=== PATIENT | male | born 1950 | race Caucasian/White ===

== ENCOUNTER → 2019-10-23 13:32 | Outpatient (CLI) | payer SELFPAY ==
[2019-10-23 14:14] LABS: Influenza A - CEPHEID Flu A NEGATIVE (NEGATIVE); Influenza B - CEPHEID Flu B NEGATIVE (NEGATIVE)
== END ==
PROVIDERS: Visit Provider Physician Assistant
DX: R52 Pain, unspecified (principal)
CPT/HCPCS: 87502

== ENCOUNTER 2019-10-23 14:32 | Emergency (ER) | payer SELFPAY ==
[2019-10-23] VITALS (20 sets, daily range): BP systolic 135–177; BP diastolic 96–124; PULSE 79–90; RESP 17–25; TEMP 36.9; O2SAT 89–93
--- NOTE | 2019-10-23 14:41 | DI.RAD.S_ITS ---
PROCEDURE: XR CHEST 2V INDICATIONS: soa TECHNIQUE: 2 views of the chest were acquired. COMPARISON: None. FINDINGS: Surgical changes and devices: None. Lungs and pleura: Lungs are clear. No pleural effusions or pneumothorax. Mediastinum: Mediastinal contours are normal. Heart size is mildly enlarged. Bones and chest wall: No suspicious bony abnormalities. Soft tissues appear unremarkable. IMPRESSION: Mild cardiomegaly. No acute pulmonary findings. Dictated by: Joselin Prasad M.D. on 10/23/2019 at 13:56 Approved by: Joselin Prasad M.D. on 10/23/2019 at 13:57
[2019-10-23 15:12] LABS: Add Manual Diff / Slide Review NO; Basophils Absolute Auto 100 /uL (0-100); Basophils Percent Auto 0.9 % (0-2); Eosinophils Absolute Auto 100 /uL (0-450); Eosinophils Percent Auto 1.1 % (2-4); Hematocrit 49.1 % (41-53); Hemoglobin 16.5 g/dL (13.5-17.5); Lymphocytes Absolute Auto 1300 /uL (1100-4500); Mean Corpuscular HGB Conc 33.6 % (30-36); Mean Corpuscular Hemoglobin 28.1 PG (26-34); Mean Corpuscular Volume 83.8 fL (80-100); Monocytes Absolute Auto 800 /uL (0-900); Monocytes Percent Auto 11.6 % (3-14); Neutrophils Absolute Auto 4900 /uL (1500-7000); Neutrophils Percent Auto 68.4 % (50-75); Platelet Count 184 X10^3/uL (150-400); Red Blood Cell Count 5.85 X10^6/uL (4.5-5.9); Red Cell Distribution Width 14.9 % (11.6-14.8); White Blood Cell Count 7.1 X10^3/uL (4.5-11.0)
--- NOTE | 2019-10-23 15:19 | DI.CT.S_ITS ---
PROCEDURE: CT ANGIO CHEST PE PROTOCOL INDICATIONS: sob, hypoxia TECHNIQUE: After the administration of intravenous contrast, 2 mm thick sections acquired from the pulmonary apices to the posterior costophrenic angles. 3-dimensional maximum intensity projection (MIP) coronal and sagittal reformats were then acquired through the thorax. For radiation dose reduction, the following was used: automated exposure control, adjustment of mA and/or kV according to patient size. COMPARISON: None. FINDINGS: Image quality: Excellent. Pulmonary arteries: Extensive bilateral pulmonary emboli including a large pulmonary embolus is in the right main pulmonary artery extending into the right middle lobe pulmonary artery and right lower lobe pulmonary artery, with nonocclusive thrombus extending into the lateral basal segment pulmonary artery the right lower lobe. There is a so large embolus in the distal left main pulmonary artery extending into the left upper lobe pulmonary artery and left lower lobe pulmonary artery with clot extending into the lingular pulmonary artery and small clot in multiple basilar branch pulmonary arteries. Lungs and pleura: 3 mm pulmonary nodule, right lower lobe, image 150/5. Minimal atelectasis versus consolidation in the left lower lobe. Minimal left pleural effusion. Central and peripheral airways are patent. Mediastinum: The right ventricle may be slightly greater in size than the left ventricle. This is not definite, based on how the heart is oriented relative to the axial plane. There is no reflux of contrast into the inferior vena cava.. No mediastinal or hilar adenopathy. Thoracic aorta is normal in caliber and enhancement. Esophagus is normal in caliber, without hiatal hernia. Bones and chest wall: No suspicious bony lesions. Ribs and thoracic spine appear intact throughout. Thyroid gland is unremarkable4. No axillary or supraclavicular adenopathy. Abdomen: There is a question of focal calcifications versus early filling of a peripherally enhancing lesion in the liver on images 118 through 125. The area measures approximately 2 cm in diameter. IMPRESSION: 1. Extensive central and peripheral pulmonary emboli. 2. Question increased RV/LV ratio. This is not definite. 3. 3 mm right lower lobe pulmonary nodule. 4. Minimal atelectasis versus consolidation in the left lower lobe. 5. A 2 cm lesion in the liver should be further characterized by ultrasound or multiphase CT or MRI at a later date. Comment: Findings were discussed with Dr. Velarde at the time of study dictation on 10/23/19 at 1615 hrs. Dictated by: Nahun Baptiste M.D. on 10/23/2019 at 16:15 Approved by: Nahun Baptiste M.D. on 10/23/2019 at 16:24
[2019-10-23 15:37] LABS: Alanine Aminotransferase 15 IU/L (<50); Albumin 4.1 g/dL (3.5-5.0); Albumin Globulin Ratio 1.3 (1.0-2.8); Alkaline Phosphatase 80 U/L (38-126); Aspartate Aminotransferase 29 IU/L (17-59); BUN Creatinine Ratio 15.4 (6-22); Bilirubin Total 1.1 mg/dL (0.2-1.3); Blood Urea Nitrogen 20 mg/dL (9-20); Carbon Dioxide 29 mmol/L (22-32); Chloride 104 mmol/L (98-107); Creatine Kinase 99 U/L (55-170); Estimated Glomerular Filt Rate 55.1 mL/min (>60); Globulin 3.1 g/dL (1.7-4.1); Glucose 101 mg/dL (80-110); HEMOLYSIS < 15 (0-50); Potassium 4.3 mmol/L (3.4-5.1); Sodium 140 mmol/L (137-145); Total Protein 7.2 g/dL (6.3-8.2)
[2019-10-23 15:38] LABS: Lactate (Lactic Acid) 0.9 mmol/L (0.7-2.1); Magnesium 2.3 mg/dL (1.6-2.3)
[2019-10-23 15:48] LABS: Troponin I 0.052 ng/mL (0.01-0.034)
[2019-10-23 16:02] LABS: B Type Natriuretic Peptide 197 (<100)
[2019-10-23 16:29] LABS: INR 1.1 (0.9-1.3); Prothrombin Time 12.9 SECONDS (10.1-12.7)
[2019-10-23] MEDS: HEPARIN 5,000 UNIT/ML VIAL 6700 UNIT IV (16:29)
[2019-10-23] MEDS: HEPARIN DRIP 25,000 UNIT/500 ML IV.SOLN 24 UNIT IV (16:30)
[2019-10-23 16:32] LABS: PTT Partial Thromboplastin Tim 29 SECONDS (26.4-36.2)
--- NOTE | 2019-10-23 19:30 | ED_ITS ---
HPI - SOB/Dyspnea <SWAPNA Rosado - Last Filed: 10/23/19 21:46> General Chief Complaint: Shortness of Breath/Dyspnea Stated Complaint: shortness of breath Time Seen by Provider: 10/23/19 14:54 Source: patient Mode of arrival: Ambulatory Limitations: no limitations History of Present Illness HPI Narrative: The patient is a 69-year-old male who denies pertinent medical history who presents with a chief complaint of shortness of breath that is progressive over the past few days. He states it started 2-3 days ago, when he had sudden pain in his left calf. Since he has had a hard time walking up hills in ambulating. He denies any medical history, surgeries or daily medications. He states that he has not had any recent immobilization, long travel or surgeries. He denies any chest pain, states he just has shortness of breath. he denies any palpitations, dizziness, lightheadedness or weakness. He states he is very frustrated as he used to do triathlons and did one recently. Related Data Home Medications Medication Instructions Recorded Confirmed No Known Home Medications 10/23/19 10/23/19 Allergies Allergy/AdvReac Type Severity Reaction Status Date / Time No Known Drug Allergies Allergy Verified 10/23/19 13:30 Review of Systems <SWAPNA Rosado - Last Filed: 10/23/19 21:46> Review of Systems Narrative: GENERAL: Denies chills, fatigue, malaise, fever, sweats. HEENT: Denies sinus pain, ear pain, sore throat, difficulty swallowing, di zziness. RESPIRATORY: See HPI CARDIOVASCULAR: Denies chest pain, palpitations, orthopnea, edema, GASTROINTESTINAL: Denies nausea, vomiting, abdominal pain, diarrhea, constipation, melena. : Denies dysuria, frequency, incontinence, hematuria, urinary retention. MUSCULOSKELETAL: denies weakness, joint pain, or bony pain SKIN: Denies rash, skin lesions, or other NEUROLOGIC: Denies weakness, headache, numbness, change in speech, confusion, seizures, incoordination. PSYCHIATRIC: No concerning psychosocial issues. 12 point review of systems is negative except for those stated above Exam <SWAPNA Rosado - Last Filed: 10/23/19 21:46> Narrative Exam Narrative: GENERAL: This is a well-nourished, well-developed patient, in no acute distress HEAD: Atraumatic. Normocephalic. No temporal or scalp tenderness. EYES: Pupils equal round and reactive. Extraocular motions intact. No scleral icterus. No injection or drainage. ENT: Nose without bleeding, purulent drainage or septal hematoma. Throat without erythema, tonsillar hypertrophy or exudate. Uvula midline. Airway patent. NECK: Trachea midline. No JVD or lymphadenopathy. Supple, nontender, no meningeal signs. CARDIOVASCULAR: Regular rate and rhythm RESPIRATORY: Clear to auscultation. Breath sounds equal bilaterally. No wheezes, rales, or rhonchi. No cough. Slightly tachypneic. No accessory muscle use. GASTROINTESTINAL: Abdomen soft, non-tender, nondistended. No hepato- splenomegaly, or palpable masses. No guarding. EXTREMITIES: Positive pedal pulses bilaterally. Left calf slightly swollen compared to right. BACK: Nontender without deformity or crepitance. No flank tenderness. NEURO: AOx3. SKIN: No rash or erythema on visible skin Initial Vital Signs Initial Vital Signs: Vital Signs Temperature 98.4 F 10/23/19 14:39 Pulse Rate 85 10/23/19 14:39 Respiratory Rate 20 10/23/19 14:39 Blood Pressure 152/104 H 10/23/19 14:39 Pulse Oximetry 91 10/23/19 14:39 <Harsha Leavitt DO - Last Filed: 10/23/19 23:34> Initial Vital Signs Initial Vital Signs: Vital Signs Temperature 98.4 F 10/23/19 14:39 Pulse Rate 85 10/23/19 14:39 Respiratory Rate 20 10/23/19 14:39 Blood Pressure 152/104 H 10/23/19 14:39 Pulse Oximetry 91 10/23/19 14:39 Course <SONAM Rosado-BC - Last Filed: 10/23/19 21:46> Orders Ordered: ED Orders 10/23/19 14:41 XR chest 2V Stat EKG-12 Lead Stat 10/23/19 15:05 B Type Natriuretic Peptide Stat Complete Blood Count AUTO DIFF Stat Comprehensive Metabolic Panel Stat Lactate (Lactic Acid) Stat Magnesium Stat Partial Thromboplastin Time Stat Prothrombin Time INR Stat Troponin & CK Cardiac Panel Stat 10/23/19 15:19 CT angio chest PE protocol Stat 10/23/19 19:04 B Type Natriuretic Peptide Stat Trop I [Troponin I] Stat 10/23/19 22:30 Partial Thromboplastin Time Stat Prothrombin Time INR Stat Discontinued Medications Heparin Sodium (Porcine) (Heparin) 6,700 unit 80 unit/kg (6700 unit) IV NOW ONE Stop: 10/23/19 16:22 Last Admin: 10/23/19 16:29 Dose: 6,700 unit Documented by: DEANNA Heparin Sodium/Dextrose (Heparin Drip) 25,000 unit in 500 mls @ 24 mls/hr IV CONT SHARON; Protocol Last Admin: 10/23/19 16:30 Dose: 1,200 units/hr, 24 mls/hr Documented by: DEANNA Consultations Consultation #1: I spoke with Dr. Agosto and Dr Morfin from [facility], who states that the patient would be eligible for tPA in the morning. However this would place him in the ICU in the morning with aged or disabled carer Dr. Agosto, but he would not be in the ICU overnight. Dr Morfin, hospitalist states that the patient would not be able to be transferred until the morning. Called back with worsening vitals and hypoxia, concern of right heart strain. However patient is unable to be accepted until the morning at [facility]. [facility] Time: 18:30 Consultation #2: Spoke with Hernandez YADAV, not hospitalist who states the patient would ideally be transferred somewhere else for a more appropriate level of care. Time: 19:30 Consultation #3: Spoke with Dr. Haddad cardiac aged or disabled carer at [facility] as well as Dr. Felton, hospitalist who states that the patient is appropriate for transfer to [facility]. Patient was stood and ambulated as per intensive is recommendations. Without syncope or near-syncope. Dr. Felton accepts patient for transfer. Time: 21:00 Vital Signs Vital signs: Vital Signs - 8 hr 10/23/19 15:48 10/23/19 16:30 10/23/19 17:00 Pulse Rate 84 85 84 Respiratory Rate 24 23 22 Blood Pressure [Left Arm] 141/100 H 149/105 H 166/113 H Pulse Oximetry 93 92 89 L 10/23/19 17:15 10/23/19 17:30 10/23/19 17:45 Pulse Rate 85 85 86 Respiratory Rate 22 22 21 Blood Pressure [Left Arm] 145/104 H 146/102 H 156/97 H Pulse Oximetry 91 93 92 10/23/19 18:00 10/23/19 18:15 10/23/19 18:45 Pulse Rate 89 90 85 Respiratory Rate 24 25 H 17 Blood Pressure [Left Arm] 147/103 H 157/107 H 159/114 H Pulse Oximetry 92 92 93 10/23/19 19:15 10/23/19 19:45 10/23/19 20:00 Pulse Rate 86 87 84 Respiratory Rate 23 23 21 Blood Pressure [Left Arm] 148/105 H 160/124 H 156/105 H Pulse Oximetry 92 93 91 10/23/19 20:15 10/23/19 20:30 10/23/19 20:45 Pulse Rate 87 89 89 Respiratory Rate 19 19 19 Blood Pressure [Left Arm] 155/109 H 177/102 H 177/102 H Pulse Oximetry 92 92 92 10/23/19 21:04 10/23/19 22:33 Pulse Rate 88 88 Respiratory Rate 17 23 Blood Pressure [Left Arm] 135/96 H 156/106 H Pulse Oximetry 93 92 <Harsha Leavitt, DO - Last Filed: 10/23/19 23:34> Orders Ordered: ED Orders 10/23/19 14:41 XR chest 2V Stat EKG-12 Lead Stat 10/23/19 15:05 B Type Natriuretic Peptide Stat Complete Blood Count AUTO DIFF Stat Comprehensive Metabolic Panel Stat Lactate (Lactic Acid) Stat Magnesium Stat Partial Thromboplastin Time Stat Prothrombin Time INR Stat Troponin & CK Cardiac Panel Stat 10/23/19 15:19 CT angio chest PE protocol Stat 10/23/19 19:04 B Type Natriuretic Peptide Stat Trop I [Troponin I] Stat 10/23/19 22:30 Partial Thromboplastin Time Stat Prothrombin Time INR Stat Discontinued Medications Heparin Sodium (Porcine) (Heparin) 6,700 unit 80 unit/kg (6700 unit) IV NOW ONE Stop: 10/23/19 16:22 Last Admin: 10/23/19 16:29 Dose: 6,700 unit Documented by: DEANNA Heparin Sodium/Dextrose (Heparin Drip) 25,000 unit in 500 mls @ 24 mls/hr IV CONT SHARON; Protocol Last Admin: 10/23/19 16:30 Dose: 1,200 units/hr, 24 mls/hr Documented by: DEANNA Vital Signs Vital signs: Vital Signs - 8 hr 10/23/19 15:48 10/23/19 16:30 10/23/19 17:00 Pulse Rate 84 85 84 Respiratory Rate 24 23 22 Blood Pressure [Left Arm] 141/100 H 149/105 H 166/113 H Pulse Oximetry 93 92 89 L 10/23/19 17:15 10/23/19 17:30 10/23/19 17:45 Pulse Rate 85 85 86 Respiratory Rate 22 22 21 Blood Pressure [Left Arm] 145/104 H 146/102 H 156/97 H Pulse Oximetry 91 93 92 10/23/19 18:00 10/23/19 18:15 10/23/19 18:45 Pulse Rate 89 90 85 Respiratory Rate 24 25 H 17 Blood Pressure [Left Arm] 147/103 H 157/107 H 159/114 H Pulse Oximetry 92 92 93 10/23/19 19:15 10/23/19 19:45 10/23/19 20:00 Pulse Rate 86 87 84 Respiratory Rate 23 23 21 Blood Pressure [Left Arm] 148/105 H 160/124 H 156/105 H Pulse Oximetry 92 93 91 10/23/19 20:15 10/23/19 20:30 10/23/19 20:45 Pulse Rate 87 89 89 Respiratory Rate 19 19 19 Blood Pressure [Left Arm] 155/109 H 177/102 H 177/102 H Pulse Oximetry 92 92 92 10/23/19 21:04 10/23/19 22:33 Pulse Rate 88 88 Respiratory Rate 17 23 Blood Pressure [Left Arm] 135/96 H 156/106 H Pulse Oximetry 93 92 MDM - SOB/Dyspnea <SONAM Rosado-BC - Last Filed: 10/23/19 21:46> Lab Data Result diagrams: 10/23/19 15:05 10/23/19 15:05 Labs: Lab Results 10/23/19 10/23/19 10/23/19 Range/Units 15:05 15:05 15:05 WBC 7.1 (4.5-11.0) X10^3/uL RBC 5.85 (4.5-5.9) X10^6/uL Hgb 16.5 (13.5-17.5) g/dL Hct 49.1 (41-53) % MCV 83.8 (80-100) fL MCH 28.1 (26-34) PG MCHC 33.6 (30-36) % RDW 14.9 H (11.6-14.8) % Plt Count 184 (150-400) X10^3/uL Neut % (Auto) 68.4 (50-75) % Lymph % (Auto) 18.0 L (25-40) % Howell % (Auto) 11.6 (3-14) % Eos % (Auto) 1.1 L (2-4) % Baso % (Auto) 0.9 (0-2) % Neut # (Auto) 4900 (9644-0217) /uL Lymph # (Auto) 1300 (0009-6466) /uL Howell # (Auto) 800 (0-900) /uL Eos # (Auto) 100 (0-450) /uL Baso # (Auto) 100 (0-100) /uL PT (10.1-12.7) SECONDS INR (0.9-1.3) APTT (26.4-36.2) SECONDS Sodium 140 (137-145) mmol/L Potassium 4.3 (3.4-5.1) mmol/L Chloride 104 (98-107) mmol/L Carbon Dioxide 29 (22-32) mmol/L BUN 20 (9-20) mg/dL Creatinine 1.30 H (0.66-1.25) mg/dL Estimated GFR 55.1 L (>60) mL/min BUN/Creatinine Ratio 15.4 (6-22) Glucose 101 (80-110) mg/dL Lactate (0.7-2.1) mmol/L Calcium 9.0 (8.4-10.2) mg/dL Magnesium 2.3 (1.6-2.3) mg/dL Total Bilirubin 1.1 (0.2-1.3) mg/dL AST 29 (17-59) IU/L ALT 15 (<50) IU/L Alkaline Phosphatase 80 (38-126) U/L Total Creatine Kinase 99 (55-170) U/L CK-MB (CK-2) TNP CK-MB (CK-2) Rel Index TNP Troponin I 0.052 H (0.01-0.034) ng/mL B-Natriuretic Peptide 197 H (<100) Total Protein 7.2 (6.3-8.2) g/dL Albumin 4.1 (3.5-5.0) g/dL Globulin 3.1 (1.7-4.1) g/dL Albumin/Globulin Ratio 1.3 (1.0-2.8) 10/23/19 10/23/19 10/23/19 Range/Units 15:05 15:05 19:04 WBC (4.5-11.0) X10^3/uL RBC (4.5-5.9) X10^6/uL Hgb (13.5-17.5) g/dL Hct (41-53) % MCV (80-100) fL MCH (26-34) PG MCHC (30-36) % RDW (11.6-14.8) % Plt Count (150-400) X10^3/uL Neut % (Auto) (50-75) % Lymph % (Auto) (25-40) % Howell % (Auto) (3-14) % Eos % (Auto) (2-4) % Baso % (Auto) (0-2) % Neut # (Auto) (4210-0430) /uL Lymph # (Auto) (4608-7642) /uL Howell # (Auto) (0-900) /uL Eos # (Auto) (0-450) /uL Baso # (Auto) (0-100) /uL PT 12.9 H (10.1-12.7) SECONDS INR 1.1 (0.9-1.3) APTT 29 (26.4-36.2) SECONDS Sodium (137-145) mmol/L Potassium (3.4-5.1) mmol/L Chloride (98-107) mmol/L Carbon Dioxide (22-32) mmol/L BUN (9-20) mg/dL Creatinine (0.66-1.25) mg/dL Estimated GFR (>60) mL/min BUN/Creatinine Ratio (6-22) Glucose (80-110) mg/dL Lactate 0.9 (0.7-2.1) mmol/L Calcium (8.4-10.2) mg/dL Magnesium (1.6-2.3) mg/dL Total Bilirubin (0.2-1.3) mg/dL AST (17-59) IU/L ALT (<50) IU/L Alkaline Phosphatase (38-126) U/L Total Creatine Kinase (55-170) U/L CK-MB (CK-2) CK-MB (CK-2) Rel Index Troponin I 0.051 H (0.01-0.034) ng/mL B-Natriuretic Peptide (<100) Total Protein (6.3-8.2) g/dL Albumin (3.5-5.0) g/dL Globulin (1.7-4.1) g/dL Albumin/Globulin Ratio (1.0-2.8) 10/23/19 10/23/19 Range/Units 19:04 22:30 WBC (4.5-11.0) X10^3/uL RBC (4.5-5.9) X10^6/uL Hgb (13.5-17.5) g/dL Hct (41-53) % MCV (80-100) fL MCH (26-34) PG MCHC (30-36) % RDW (11.6-14.8) % Plt Count (150-400) X10^3/uL Neut % (Auto) (50-75) % Lymph % (Auto) (25-40) % Howell % (Auto) (3-14) % Eos % (Auto) (2-4) % Baso % (Auto) (0-2) % Neut # (Auto) (7567-9728) /uL Lymph # (Auto) (3227-8556) /uL Howell # (Auto) (0-900) /uL Eos # (Auto) (0-450) /uL Baso # (Auto) (0-100) /uL PT 12.9 H (10.1-12.7) SECONDS INR 1.1 (0.9-1.3) APTT 57 H D (26.4-36.2) SECONDS Sodium (137-145) mmol/L Potassium (3.4-5.1) mmol/L Chloride (98-107) mmol/L Carbon Dioxide (22-32) mmol/L BUN (9-20) mg/dL Creatinine (0.66-1.25) mg/dL Estimated GFR (>60) mL/min BUN/Creatinine Ratio (6-22) Glucose (80-110) mg/dL Lactate (0.7-2.1) mmol/L Calcium (8.4-10.2) mg/dL Magnesium (1.6-2.3) mg/dL Total Bilirubin (0.2-1.3) mg/dL AST (17-59) IU/L ALT (<50) IU/L Alkaline Phosphatase (38-126) U/L Total Creatine Kinase (55-170) U/L CK-MB (CK-2) CK-MB (CK-2) Rel Index Troponin I (0.01-0.034) ng/mL B-Natriuretic Peptide 221 H (<100) Total Protein (6.3-8.2) g/dL Albumin (3.5-5.0) g/dL Globulin (1.7-4.1) g/dL Albumin/Globulin Ratio (1.0-2.8) Urine Dip Bedside Urine Glucose Negative Bedside Urine Bilirubin - Negative Bedside Urine Ketone +/- 5 Urine Specific [place] 1.015 Bedside Urine Occult Blood - Negative Bedside Urine pH 5.5 Bedside Urine Protein +/- 15 Bedside Urine Urobilinogen +/- 1mg Bedside Urine Nitrite - Negative Bedside Urine Leukocytes - Negative Esterase Imaging Data Chest x-ray: Radiologist's impression: [address] [address] XRay Report Signed Patient: Ricardo López LMR#: [id number] : 2Acct:[id number] Age/Sex: 69 / MDate of Service: 10/23/19 Loc: ED Accession Number: [id number] Procedure: XR chest 2V Ordering Provider: Jorge Velarde D.O. PROCEDURE: XR CHEST 2V INDICATIONS: soa TECHNIQUE: 2 views of the chest were acquired. COMPARISON: None. FINDINGS: Surgical changes and devices: None. Lungs and pleura: Lungs are clear. No pleural effusions or pneumothorax. Mediastinum: Mediastinal contours are normal. Heart size is mildly enlarged. Bones and chest wall: No suspicious bony abnormalities. Soft tissues appear unremarkable. IMPRESSION: Mild cardiomegaly. No acute pulmonary findings. Dictated by: Joselin Prasad M.D. on 10/23/2019 at 13:56 Approved by: Joselin Prasad M.D. on 10/23/2019 at 13:57 Chest CTA: Radiologist's impression: [address] [address] [address] Scan Report Signed Patient: Ricardo López LMR#: [id number] : 2Acct:[id number] Age/Sex: 69 / MDate of Service: 10/23/19 Loc: ED Accession Number: [id number] Procedure: CT angio chest PE protocol Ordering Provider: Merari Brown [facility] PROCEDURE: CT ANGIO CHEST PE PROTOCOL INDICATIONS: sob, hypoxia TECHNIQUE: After the administration of intravenous contrast, 2 mm thick sections acquired from the pulmonary apices to the posterior costophrenic angles. 3-dimensional maximum intensity projection (MIP) coronal and sagittal reformats were then acquired through the thorax. For radiation dose reduction, the following was used: automated exposure control, adjustment of mA and/or kV according to patient size. COMPARISON: None. FINDINGS: Image quality: Excellent. Pulmonary arteries: Extensive bilateral pulmonary emboli including a large pulmonary embolus is in the right main pulmonary artery extending into the right middle lobe pulmonary artery and right lower lobe pulmonary artery, with nonocclusive thrombus extending into the lateral basal segment pulmonary artery the right lower lobe. There is a so large embolus in the distal left main pulmonary artery extending into the left upper lobe pulmonary artery and left lower lobe pulmonary artery with clot extending into the lingular pulmonary artery and small clot in multiple basilar branch pulmonary arteries. Lungs and pleura: 3 mm pulmonary nodule, right lower lobe, image 150/5. Minimal atelectasis versus consolidation in the left lower lobe. Minimal left pleural effusion. Central and peripheral airways are patent. Mediastinum: The right ventricle may be slightly greater in size than the left ventricle. This is not definite, based on how the heart is oriented relative to the axial plane. There is no reflux of contrast into the inferior vena cava.. No mediastinal or hilar adenopathy. Thoracic aorta is normal in caliber and enhancement. Esophagus is normal in caliber, without hiatal hernia. Bones and chest wall: No suspicious bony lesions. Ribs and thoracic spine appear intact throughout. Thyroid gland is unremarkable4. No axillary or supraclavicular adenopathy. Abdomen: There is a question of focal calcifications versus early filling of a peripherally enhancing lesion in the liver on images 118 through 125. The area measures approximately 2 cm in diameter. IMPRESSION: 1. Extensive central and peripheral pulmonary emboli. 2. Question increased RV/LV ratio. This is not definite. 3. 3 mm right lower lobe pulmonary nodule. 4. Minimal atelectasis versus consolidation in the left lower lobe. 5. A 2 cm lesion in the liver should be further characterized by ultrasound or multiphase CT or MRI at a later date. Comment: Findings were discussed with Dr. Velarde at the time of study dictation on 10/23/19 at 1615 hrs. Dictated by: aNhun Baptiste M.D. on 10/23/2019 at 16:15 Approved by: Nahun Baptiste M.D. on 10/23/2019 at 16:24 ECG Data Attestation: I personally reviewed and interpreted this ECG as follows: Interpretation: SR, ventricular rate 84. P.r. 202, QRS 106m anterolateral ischemia viewed by Dr velarde MDM Narrative Medical decision making narrative: The patient is a 69-year-old male who presents with a chief complaint of increasing shortness of breath. He was found to be hypoxic on room air, had recent complaint of calf tenderness few days ago. Patient was evaluated for PE, was found to have extensive central and peripheral pulmonary emboli. He has signs of right heart strain, with elevated BNP and troponin in addition EKG changes. Patient had increasing oxygen requirements throughout his stay in the emergency department. He was placed on heparin with bolus and drip as per Dr. Velarde recommendations. I spoke with several hospitals in order to try to 5 appropriate placement for this patient. [facility] is full, [facility] is full, [facility] does not have any availability into the morning. Patient was accepted for transfer to [facility] by Dr. Felton at approximately 21:00 hours. Patient states understanding of transfer, has no que stions or concerns. He has 2 IVs, heparin infusing and was signed out to Dr. Leavitt at 21:30 <Harsha Leavitt, DO - Last Filed: 10/23/19 23:34> Lab Data Labs: Lab Results 10/23/19 10/23/19 10/23/19 Range/Units 15:05 15:05 15:05 WBC 7.1 (4.5-11.0) X10^3/uL RBC 5.85 (4.5-5.9) X10^6/uL Hgb 16.5 (13.5-17.5) g/dL Hct 49.1 (41-53) % MCV 83.8 (80-100) fL MCH 28.1 (26-34) PG MCHC 33.6 (30-36) % RDW 14.9 H (11.6-14.8) % Plt Count 184 (150-400) X10^3/uL Neut % (Auto) 68.4 (50-75) % Lymph % (Auto) 18.0 L (25-40) % Howell % (Auto) 11.6 (3-14) % Eos % (Auto) 1.1 L (2-4) % Baso % (Auto) 0.9 (0-2) % Neut # (Auto) 4900 (4506-3562) /uL Lymph # (Auto) 1300 (0206-3742) /uL Howell # (Auto) 800 (0-900) /uL Eos # (Auto) 100 (0-450) /uL Baso # (Auto) 100 (0-100) /uL PT (10.1-12.7) SECONDS INR (0.9-1.3) APTT (26.4-36.2) SECONDS Sodium 140 (137-145) mmol/L Potassium 4.3 (3.4-5.1) mmol/L Chloride 104 (98-107) mmol/L Carbon Dioxide 29 (22-32) mmol/L BUN 20 (9-20) mg/dL Creatinine 1.30 H (0.66-1.25) mg/dL Estimated GFR 55.1 L (>60) mL/min BUN/Creatinine Ratio 15.4 (6-22) Glucose 101 (80-110) mg/dL Lactate (0.7-2.1) mmol/L Calcium 9.0 (8.4-10.2) mg/dL Magnesium 2.3 (1.6-2.3) mg/dL Total Bilirubin 1.1 (0.2-1.3) mg/dL AST 29 (17-59) IU/L ALT 15 (<50) IU/L Alkaline Phosphatase 80 (38-126) U/L Total Creatine Kinase 99 (55-170) U/L CK-MB (CK-2) TNP CK-MB (CK-2) Rel Index TNP Troponin I 0.052 H (0.01-0.034) ng/mL B-Natriuretic Peptide 197 H (<100) Total Protein 7.2 (6.3-8.2) g/dL Albumin 4.1 (3.5-5.0) g/dL Globulin 3.1 (1.7-4.1) g/dL Albumin/Globulin Ratio 1.3 (1.0-2.8) 10/23/19 10/23/19 10/23/19 Range/Units 15:05 15:05 19:04 WBC (4.5-11.0) X10^3/uL RBC (4.5-5.9) X10^6/uL Hgb (13.5-17.5) g/dL Hct (41-53) % MCV (80-100) fL MCH (26-34) PG MCHC (30-36) % RDW (11.6-14.8) % Plt Count (150-400) X10^3/uL Neut % (Auto) (50-75) % Lymph % (Auto) (25-40) % Howell % (Auto) (3-14) % Eos % (Auto) (2-4) % Baso % (Auto) (0-2) % Neut # (Auto) (7419-5688) /uL Lymph # (Auto) (2270-2168) /uL Howell # (Auto) (0-900) /uL Eos # (Auto) (0-450) /uL Baso # (Auto) (0-100) /uL PT 12.9 H (10.1-12.7) SECONDS INR 1.1 (0.9-1.3) APTT 29 (26.4-36.2) SECONDS Sodium (137-145) mmol/L Potassium (3.4-5.1) mmol/L Chloride (98-107) mmol/L Carbon Dioxide (22-32) mmol/L BUN (9-20) mg/dL Creatinine (0.66-1.25) mg/dL Estimated GFR (>60) mL/min BUN/Creatinine Ratio (6-22) Glucose (80-110) mg/dL Lactate 0.9 (0.7-2.1) mmol/L Calcium (8.4-10.2) mg/dL Magnesium (1.6-2.3) mg/dL Total Bilirubin (0.2-1.3) mg/dL AST (17-59) IU/L ALT (<50) IU/L Alkaline Phosphatase (38-126) U/L Total Creatine Kinase (55-170) U/L CK-MB (CK-2) CK-MB (CK-2) Rel Index Troponin I 0.051 H (0.01-0.034) ng/mL B-Natriuretic Peptide (<100) Total Protein (6.3-8.2) g/dL Albumin (3.5-5.0) g/dL Globulin (1.7-4.1) g/dL Albumin/Globulin Ratio (1.0-2.8) 10/23/19 10/23/19 Range/Units 19:04 22:30 WBC (4.5-11.0) X10^3/uL RBC (4.5-5.9) X10^6/uL Hgb (13.5-17.5) g/dL Hct (41-53) % MCV (80-100) fL MCH (26-34) PG MCHC (30-36) % RDW (11.6-14.8) % Plt Count (150-400) X10^3/uL Neut % (Auto) (50-75) % Lymph % (Auto) (25-40) % Howell % (Auto) (3-14) % Eos % (Auto) (2-4) % Baso % (Auto) (0-2) % Neut # (Auto) (5205-9849) /uL Lymph # (Auto) (4568-5645) /uL Howell # (Auto) (0-900) /uL Eos # (Auto) (0-450) /uL Baso # (Auto) (0-100) /uL PT 12.9 H (10.1-12.7) SECONDS INR 1.1 (0.9-1.3) APTT 57 H D (26.4-36.2) SECONDS Sodium (137-145) mmol/L Potassium (3.4-5.1) mmol/L Chloride (98-107) mmol/L Carbon Dioxide (22-32) mmol/L BUN (9-20) mg/dL Creatinine (0.66-1.25) mg/dL Estimated GFR (>60) mL/min BUN/Creatinine Ratio (6-22) Glucose (80-110) mg/dL Lactate (0.7-2.1) mmol/L Calcium (8.4-10.2) mg/dL Magnesium (1.6-2.3) mg/dL Total Bilirubin (0.2-1.3) mg/dL AST (17-59) IU/L ALT (<50) IU/L Alkaline Phosphatase (38-126) U/L Total Creatine Kinase (55-170) U/L CK-MB (CK-2) CK-MB (CK-2) Rel Index Troponin I (0.01-0.034) ng/mL B-Natriuretic Peptide 221 H (<100) Total Protein (6.3-8.2) g/dL Albumin (3.5-5.0) g/dL Globulin (1.7-4.1) g/dL Albumin/Globulin Ratio (1.0-2.8) Urine Dip Bedside Urine Glucose Negative Bedside Urine Bilirubin - Negative Bedside Urine Ketone +/- 5 Urine Specific [place] 1.015 Bedside Urine Occult Blood - Negative Bedside Urine pH 5.5 Bedside Urine Protein +/- 15 Bedside Urine Urobilinogen +/- 1mg Bedside Urine Nitrite - Negative Bedside Urine Leukocytes - Negative Esterase Discharge Plan Departure Patient Disposition: [facility] Clinical Impression: Pulmonary embolism Qualifiers: Pulmonary embolism type: unspecified Chronicity: acute Acute cor pulmonale presence: with acute cor pulmonale Qualified Code(s): I26.09 - Other pulmonary embolism with acute cor pulmonale Discharge Date/Time: 10/23/19 22:45 Prescriptions: No Action No Known Home Medications RF: 0
[2019-10-23 19:32] LABS: B Type Natriuretic Peptide 221 (<100); Troponin I 0.051 ng/mL (0.01-0.034)
[2019-10-23 22:40] LABS: INR 1.1 (0.9-1.3); Prothrombin Time 12.9 SECONDS (10.1-12.7)
[2019-10-23 22:43] LABS: PTT Partial Thromboplastin Tim 57 SECONDS (26.4-36.2)
--- NOTE | 2019-11-14 21:08 | PC.NURSE ---
Late entry: IV heparin running at 24 ML/hour (1200 units/ hour) ended when care transferred to [facility] @2320. Heparin continued at same rate in their care.
== END 2019-10-23 22:45 | disposition short-term general hospital (02) ==
PROVIDERS: Emergency Medicine; Emergency Provider Nurse Practitioner Family
DX: I26.09 Other pulmonary embolism with acute cor pulmonale (principal)
CPT/HCPCS: 36415; 71046; 71275; 80053; 81003; 82550; 83605; 83735; 83880; 84484; 85025; 85610; 85730; 93005; 96365; 96366; 96375; 99285; J1644; Q9967

== ENCOUNTER 2019-11-26 21:09 | Emergency (ER) | payer MEDICARE, SELFPAY ==
--- NOTE | 2019-11-26 21:15 | ED.EYEPROB ---
HPI - Eye Problem General Chief complaint: Eye Problems Stated complaint: something wrong with left eye Time Seen by Provider: 11/26/19 21:15 Source: patient Mode of arrival: Ambulatory Limitations: no limitations History of Present Illness HPI Narrative: 69-year-old male nonsmoker with history of pulmonary embolism presents with a day of a problem with his left eye. Upon further questioning he states that over the course of the day he has had some redness and scratchy sensation as well as drainage of a yellowish color. In the morning his eye was a bit matted. He denies any obvious or memorable exposure to foreign body. He has no UV exposure. He does not wear contacts. chief complaint: eye redness Onset (ago): hour(s) Onset description: gradual Duration: constant Location: left eye Eye Symptoms: redness, itching and discharge Mechanism: none Associated symptoms: none Treatments Prior to Arrival: none Related Data Previous Rx's Medication Instructions Recorded warfarin 5 mg tablet 10 mg PO DAILY #180 tab 11/20/19 Allergies Allergy/AdvReac Type Severity Reaction Status Date / Time No Known Drug Allergies Allergy Verified 10/31/19 10:36 Review of Systems Constitutional Constitutional: Denies chills, Denies fatigue, Denies fever(s), Denies frequent falls, Denies lethargy and Denies weakness Eyes Eyes: Denies change in vision, Reports eye discharge, Denies irritation and Denies loss of vision ENT Ears, Nose, Mouth, and Throat: Denies change in voice, Denies dizziness, Denies neck pain, Denies sore throat and Denies throat swelling Cardiovascular Cardiovascular: Denies chest pain, Denies irregular heart rhythm, Denies lightheadedness, Denies palpitations, Denies dyspnea, Denies dyspnea on exertion and Denies orthopnea Respiratory Respiratory: Denies cough, Denies dyspnea, Denies dyspnea on exertion and Denies wheezing Gastrointestinal Gastrointestinal: Denies abdominal pain, Denies change in bowel habits, Denies diarrhea, Denies nausea and Denies vomiting Genitourinary Genitourinary: Denies hematuria, Denies flank pain, Denies urinary incontinence and Denies urinary urgency Musculoskeletal Musculoskeletal: Denies back pain, Denies muscle weakness, Denies neck pain, Denies numbness and Denies tingling Integumentary/Breasts Skin/Breast: Denies pruritus, Denies erythema, Denies rash and Denies wounds Neurologic Neurologic: Denies behavioral changes, Denies confusion, Denies dizziness, Denies frequent falls, Denies loss of vision, Denies numbness, Denies tingling and Denies weakness Psychiatric Psychiatric: Denies anxiety, Denies behavioral changes, Denies confusion, Denies depression, Denies homicidal ideation and Denies suicidal ideation Endocrine Endocrine: Denies fatigue, Denies flushing and Denies palpitations Hematologic/Lymphatic Hematologic/Lymphatic: Denies easy bruising Allergic/Immunologic Allergic/Immunologic: Denies urticaria, Denies throat swelling and Denies wheezing Patient History Surgical History H/O: knee surgery (Acute) Family History Father No problems noted. Mother No problems noted. Social History marital status: number of children: 3 lives independently: Yes Smoking Status: Never smoker Smoking Status: Never smoker Exam Narrative Exam Narrative: GEN: AOx3 and in mild distress EYES: Pupils are equal, round, and reactive to light and accommodation. Extraoccular muscles are intact bilaterally. Left eye with discharge and matting and some scleral injection. Near complete resolution of symptoms with use of proparacaine. When viewed with fluorescein under UV lamp there is small abrasion. CHEST: Lungs are clear to auscultation bilaterally and free of wheezes, rales, or rhonchi. Heart rate is regular rhythm, there are no murmurs, clicks, rubs, or gallops. There is no chest wall tenderness. ABD: Abdomen is soft and nontender. There is no guarding or rebound. Bowel sounds are normal in all 4 quadrants. There is no mass or organomegaly. EXT: Full painless ROM of all extremities with no loss of sensation or strength. SKIN: Warm, pink, and dry. No erythema or rash Initial Vital Signs Initial Vital Signs: Vital Signs Temperature 98.2 F 11/26/19 21:16 Pulse Rate 68 11/26/19 21:16 Respiratory Rate 14 11/26/19 21:16 Blood Pressure 142/95 H 11/26/19 21:16 Pulse Oximetry 97 11/26/19 21:16 Course Orders Ordered: Discontinued Medications Fluorescein Sodium (Ful-Dolores) 1 mg EYE-LEFT NOW ONE Stop: 11/26/19 21:33 Last Admin: 11/26/19 21:49 Dose: 1 mg Documented by: TONIA Proparacaine HCl (Parcaine 0.5% Ophth Raeann) 1 drops EYE-LEFT NOW ONE Stop: 11/26/19 21:26 Last Admin: 11/26/19 21:49 Dose: 1 drops Documented by: TONIA Sulfacetamide (Bleph-10) 1 drops EYE-LEFT Q3H SHARON Last Admin: 11/26/19 21:50 Dose: Not Given Documented by: TONIA Sulfacetamide (Bleph-10 Prepack) 1 bottle MISC SEEINSTR ONE Stop: 11/26/19 21:34 Last Admin: 11/26/19 21:49 Dose: 1 bottle Documented by: TONIA Vital Signs Vital signs: Vital Signs - 8 hr 11/26/19 21:16 Temperature 98.2 F Pulse Rate 68 Respiratory Rate 14 Blood Pressure 142/95 H Pulse Oximetry 97 Discharge Plan Departure Patient Disposition: Home Clinical Impression: Bacterial conjunctivitis Corneal abrasion Qualifiers: Encounter type: initial encounter Laterality: left Qualified Code(s): S05.02XA - Injury of conjunctiva and corneal abrasion without foreign body, left eye, initial encounter Discharge Date/Time: 11/26/19 21:56 Instructions: DI for Corneal Abrasion, DI for Conjunctivitis Activity Restrictions/Additional Instructions: *You have been diagnosed with [acute conjunctivitis, likely bacterial] *What to do: *Take medications as directed *Follow up with your primary care provider in 2-3 days, call for an appointment. Let them know you were seen in the Emergency Department and that we ask that you be seen in follow up *Return to ER if you should have any new, worsening or concerning symptoms Prescriptions: No Action warfarin 5 mg tablet 10 mg PO DAILY Qty: 180 RF: 0 Referrals: French Perez DO [Primary Care Provider] -
[2019-11-26 21:16] VITALS: BP 142/95; PULSE 68; RESP 14; TEMP 36.8; O2SAT 97; BMI 28.0
[2019-11-26] MEDS: PROPARACAINE 0.5% OPHTH SOL 1 DROPS EYE-LEFT (21:49)
[2019-11-26] MEDS: FLUORESCEIN 1 MG STRIP EYE-LEFT (21:49)
[2019-11-26] MEDS: SULFACETAMIDE 10% OPHTH PREPACK 1 BOTTLE MISC (21:49)
== END 2019-11-26 21:56 | disposition home or self-care (01) ==
PROVIDERS: Emergency Provider Emergency Medicine; PCP Family Medicine
DX: S05.02XA Injury of conjunctiva and corneal abrasion without foreign body, left eye, initial encounter (principal); H10.9 Unspecified conjunctivitis
CPT/HCPCS: 99281; 99282

== ENCOUNTER → 2019-12-04 07:16 | Outpatient (CLI) | payer MEDICARE, SELFPAY ==
[2019-12-04 09:40] LABS: Add Manual Diff / Slide Review NO; Basophils Absolute Auto 0 /uL (0-100); Basophils Percent Auto 0.7 % (0-2); Eosinophils Absolute Auto 100 /uL (0-450); Eosinophils Percent Auto 2.5 % (2-4); Hematocrit 47.2 % (41-53); Hemoglobin 15.6 g/dL (13.5-17.5); Lymphocytes Absolute Auto 1200 /uL (1100-4500); Lymphocytes Percent Auto 30.6 % (25-40); Mean Corpuscular HGB Conc 33.1 % (30-36); Mean Corpuscular Hemoglobin 27.5 PG (26-34); Mean Corpuscular Volume 83.1 fL (80-100); Monocytes Absolute Auto 400 /uL (0-900); Monocytes Percent Auto 11.1 % (3-14); Neutrophils Absolute Auto 2100 /uL (1500-7000); Neutrophils Percent Auto 55.1 % (50-75); Platelet Count 224 X10^3/uL (150-400); Red Blood Cell Count 5.68 X10^6/uL (4.5-5.9); Red Cell Distribution Width 16.1 % (11.6-14.8); White Blood Cell Count 3.9 X10^3/uL (4.5-11.0)
[2019-12-04 10:07] LABS: Alanine Aminotransferase 21 IU/L (<50); Albumin 3.9 g/dL (3.5-5.0); Albumin Globulin Ratio 1.5 (1.0-2.8); Alkaline Phosphatase 76 U/L (38-126); Aspartate Aminotransferase 27 IU/L (17-59); BUN Creatinine Ratio 18.2 (6-22); Bilirubin Total 0.5 mg/dL (0.2-1.3); Blood Urea Nitrogen 20 mg/dL (9-20); Calcium 8.7 mg/dL (8.4-10.2); Carbon Dioxide 31 mmol/L (22-32); Chloride 107 mmol/L (98-107); Cholesterol 180 mg/dL (140-199); Estimated Glomerular Filt Rate > 60.0 mL/min (>60); Globulin 2.6 g/dL (1.7-4.1); Glucose 100 mg/dL (80-110); HDL Cholesterol 44 mg/dL (40-60); HEMOLYSIS < 15 (0-50); LDL Cholesterol Calculated 121 mg/dL (<100); Sodium 143 mmol/L (137-145); Total Protein 6.5 g/dL (6.3-8.2); Triglycerides 76 mg/dL (35-150)
[2019-12-04 10:21] LABS: Vitamin D 25 Hydroxy (D3) 39.3 ng/mL (30.0-100.0)
[2019-12-04 10:37] LABS: Prostate Specific Antigen Scrn 2.83 ng/mL (0.1-4.0)
== END ==
PROVIDERS: PCP Family Medicine; Visit Provider Family Medicine
DX: Z12.5 Encounter for screening for malignant neoplasm of prostate (principal); Z13.220 Encounter for screening for lipoid disorders; Z13.228 Encounter for screening for other metabolic disorders; E55.9 Vitamin D deficiency, unspecified; Z12.11 Encounter for screening for malignant neoplasm of colon; Z76.89 Persons encountering health services in other specified circumstances
CPT/HCPCS: 36415; 80053; 80061; 82306; 85025; G0103

== ENCOUNTER → 2020-01-16 15:34 | Outpatient (CLI) | payer MEDICARE, OTHER, SELFPAY ==
[2020-01-16 17:30] LABS: Cholesterol 141 mg/dL (140-199); HDL Cholesterol 31 mg/dL (40-60); LDL Cholesterol Calculated 85 mg/dL (<100); Triglycerides 124 mg/dL (35-150)
[2020-01-16 18:00] LABS: Prostate Specific Antigen Scrn 3.19 ng/mL (0.1-4.0)
[2020-01-19 14:05] LABS: Protein C Activity 27 % normal (70-180)
== END ==
PROVIDERS: PCP Family Medicine; Referring Provider Family Medicine; Visit Provider Family Medicine
DX: E55.9 Vitamin D deficiency, unspecified (principal); Z12.11 Encounter for screening for malignant neoplasm of colon; Z12.5 Encounter for screening for malignant neoplasm of prostate; Z13.220 Encounter for screening for lipoid disorders; Z86.711 Personal history of pulmonary embolism
CPT/HCPCS: 36415; 80061; 81240; 81241; 85300; 85303; 85306; G0103

== ENCOUNTER → 2021-06-03 07:01 | Outpatient (CLI) | payer MEDICARE, OTHER, SELFPAY ==
[2021-06-03 08:19] LABS: Add Manual Diff / Slide Review NO; Basophils Absolute Auto 0 /uL (0-100); Basophils Percent Auto 0.8 % (0-2); Eosinophils Absolute Auto 100 /uL (0-450); Eosinophils Percent Auto 2.6 % (2-4); Hematocrit 47.1 % (41-53); Hemoglobin 15.7 g/dL (13.5-17.5); Lymphocytes Absolute Auto 1500 /uL (1100-4500); Lymphocytes Percent Auto 29.8 % (25-40); Mean Corpuscular HGB Conc 33.3 % (30-36); Mean Corpuscular Hemoglobin 28.5 PG (26-34); Mean Corpuscular Volume 85.5 fL (80-100); Monocytes Absolute Auto 500 /uL (0-900); Monocytes Percent Auto 10.5 % (3-14); Neutrophils Absolute Auto 2800 /uL (1500-7000); Neutrophils Percent Auto 56.3 % (50-75); Platelet Count 201 X10^3/uL (150-400); Red Blood Cell Count 5.51 X10^6/uL (4.5-5.9); Red Cell Distribution Width 15.3 % (11.6-14.8); White Blood Cell Count 4.9 X10^3/uL (4.5-11.0)
[2021-06-03 08:27] LABS: Alanine Aminotransferase 26 IU/L (<50); Albumin 3.9 g/dL (3.5-5.0); Albumin Globulin Ratio 1.5 (1.0-2.8); Alkaline Phosphatase 55 U/L (38-126); Aspartate Aminotransferase 30 IU/L (17-59); BUN Creatinine Ratio 15.7 (6-22); Blood Urea Nitrogen 16 mg/dL (9-20); Carbon Dioxide 31 mmol/L (22-32); Chloride 108 mmol/L (98-107); Cholesterol 175 mg/dL (140-199); Estimated Glomerular Filt Rate > 60.0 mL/min (>60); Globulin 2.6 g/dL (1.7-4.1); Glucose 105 mg/dL (80-110); HDL Cholesterol 44 mg/dL (40-60); HEMOLYSIS < 15 (0-50); LDL Cholesterol Calculated 114 mg/dL (<100); Potassium 3.8 mmol/L (3.4-5.1); Sodium 144 mmol/L (137-145); Total Protein 6.5 g/dL (6.3-8.2); Triglycerides 83 mg/dL (35-150)
[2021-06-03 08:58] LABS: Prostate Specific Antigen Scrn 2.84 ng/mL (0.1-4.0)
== END ==
PROVIDERS: PCP Family Medicine; Referring Provider Family Medicine; Visit Provider Family Medicine
DX: E78.5 Hyperlipidemia, unspecified (principal); Z12.5 Encounter for screening for malignant neoplasm of prostate; Z12.11 Encounter for screening for malignant neoplasm of colon
CPT/HCPCS: 36415; 80053; 80061; 85025; G0103

== ENCOUNTER 2021-08-01 07:36 | Emergency (ER) | payer MEDICARE, OTHER, SELFPAY ==
[2021-08-01] VITALS (11 sets, daily range): BP systolic 139–183; BP diastolic 72–102; PULSE 59–69; RESP 11–22; TEMP 36.9; O2SAT 94–97; BMI 29.4
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
--- NOTE | 2021-08-01 08:40 | DI.RAD.S_ITS ---
PROCEDURE: XR LUMBAR SPINE 2-3V INDICATIONS: lower back pain TECHNIQUE: 3 views of the lumbar spine were acquired. COMPARISON: None. FINDINGS: Bones: No acute fracture. Multilevel degenerative endplate sclerosis and spurring. Diffuse facet arthropathy. Mild narrowing of the L1-L2 disc space. Moderate narrowing of the L5-S1 disc space. Soft tissues: Overlying bowel gas pattern is normal. No suspicious soft tissue calcifications. IMPRESSION: Multilevel spondylosis as above. Diffuse facet arthropathy. Dictated by: Shakir Bennett M.D. on 08/01/2021 at 9:10 Approved by: Shakir Bennett M.D. on 08/01/2021 at 9:12
[2021-08-01] MEDS: LORazepam 0.5 MG TABLET 1 MG PO (10:39)
[2021-08-01] MEDS: HYDROCODONE/ACET 5/325 TABLET 1 TAB PO (11:54)
== END 2021-08-01 12:03 | disposition home or self-care (01) ==
PROVIDERS: Emergency Provider Emergency Medicine; PCP Family Medicine
DX: S00.83XA Contusion of other part of head, initial encounter (principal); S61.411A Laceration without foreign body of right hand, initial encounter; M54.5 Low back pain; V89.2XXA Person injured in unspecified motor-vehicle accident, traffic, initial encounter
CPT/HCPCS: 70450; 72100; 72125; 99284

== ENCOUNTER 2022-08-09 13:34 | Emergency (ER) | payer MEDICARE, OTHER, SELFPAY ==
[2022-08-09 14:04] VITALS: BP 135/73; PULSE 70; RESP 16; TEMP 36.8; O2SAT 97; BMI 28.0
[2022-08-09] MEDS: PROPARACAINE 0.5% OPHTH SOL 1 DROPS EYE-LEFT (14:17)
[2022-08-09] MEDS: FLUORESCEIN 1 MG STRIP EYE-LEFT (15:08)
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
== END 2022-08-09 16:00 | disposition left against medical advice (07) ==
PROVIDERS: Emergency Provider Physician Assistant; PCP Family Medicine
DX: T15.92XA Foreign body on external eye, part unspecified, left eye, initial encounter (principal)
CPT/HCPCS: 99282

== ENCOUNTER → 2022-11-12 16:55 | Outpatient (CLI) | payer MEDICARE, OTHER, SELFPAY ==
--- NOTE | 2022-11-12 16:58 | DI.RAD.S_ITS ---
PROCEDURE: XR KNEE RT 3V INDICATIONS: pain TECHNIQUE: 3 views of the knee were acquired. COMPARISON: None. FINDINGS: Bones: No fractures or dislocations. Moderate tricompartmental osteoarthritis is seen with joint space narrowing, subchondral sclerosis and marginal osteophyte formation. No suspicious bony lesions. Soft tissues: No joint effusion. Chondrocalcinosis in medial and lateral femoral tibial compartment is seen. IMPRESSION: Moderate tricompartmental osteoarthritis and chondrocalcinosis as above. No acute fracture or dislocation. No significant joint effusion. Dictated by: Rubio Morrow M.D. on 11/12/2022 at 17:44 Approved by: Rubio Morrow M.D. on 11/12/2022 at 17:44
== END ==
PROVIDERS: PCP Family Medicine; Referring Provider Family Medicine; Visit Provider Family Medicine
DX: M17.11 Unilateral primary osteoarthritis, right knee (principal); M11.261 Other chondrocalcinosis, right knee; M25.561 Pain in right knee; G89.29 Other chronic pain
CPT/HCPCS: 73562

== ENCOUNTER → 2024-06-27 12:17 | Outpatient (CLI) | payer OTHER, MEDICARE, SELFPAY ==
[2024-06-27 12:49] LABS: Add Manual Diff / Slide Review NO; Basophils Absolute Auto 0 /uL (0-100); Basophils Percent Auto 0.7 % (0-2); Eosinophils Absolute Auto 200 /uL (0-450); Eosinophils Percent Auto 3.6 % (2-4); Hematocrit 46.3 % (41-53); Hemoglobin 15.5 g/dL (13.5-17.5); Lymphocytes Absolute Auto 1500 /uL (1100-4500); Lymphocytes Percent Auto 28.9 % (25-40); Mean Corpuscular HGB Conc 33.6 % (30-36); Mean Corpuscular Hemoglobin 28.6 PG (26-34); Mean Corpuscular Volume 85.1 fL (80-100); Monocytes Absolute Auto 600 /uL (0-900); Neutrophils Absolute Auto 2900 /uL (1500-7000); Neutrophils Percent Auto 55.8 % (50-75); Platelet Count 226 X10^3/uL (150-400); Red Blood Cell Count 5.44 X10^6/uL (4.5-5.9); Red Cell Distribution Width 16.2 % (11.6-14.8); White Blood Cell Count 5.1 X10^3/uL (4.5-11.0)
[2024-06-27 13:17] LABS: Alanine Aminotransferase 23 IU/L (<50); Albumin 3.8 g/dL (3.5-5.0); Albumin Globulin Ratio 1.5 (1.0-2.8); Alkaline Phosphatase 95 U/L (38-126); Aspartate Aminotransferase 26 IU/L (17-59); BUN Creatinine Ratio 19.2 (6-22); Bilirubin Total 0.5 mg/dL (0.2-1.3); Blood Urea Nitrogen 20 mg/dL (9-20); Calcium 8.8 mg/dL (8.4-10.2); Carbon Dioxide 25 mmol/L (22-32); Chloride 112 mmol/L (98-107); Cholesterol 215 mg/dL (140-199); Estimated Glomerular Filt Rate > 60 mL/min (>60); Globulin 2.5 g/dL (1.7-4.1); Glucose 88 mg/dL (80-110); HDL Cholesterol 64 mg/dL (40-60); HEMOLYSIS < 15 (0-50); LDL Cholesterol Calculated 113 mg/dL (<100); Potassium 4.1 mmol/L (3.4-5.1); Sodium 142 mmol/L (137-145); Total Protein 6.3 g/dL (6.3-8.2); Triglycerides 191 mg/dL (35-150)
[2024-06-27 13:47] LABS: Prostate Specific Antigen Scrn 2.79 ng/mL (0.1-4.0)
== END ==
PROVIDERS: PCP Family Medicine; Referring Provider Family Medicine; Visit Provider Family Medicine
DX: E78.5 Hyperlipidemia, unspecified (principal); Z12.5 Encounter for screening for malignant neoplasm of prostate
CPT/HCPCS: 36415; 80053; 80061; 85025; G0103

== ENCOUNTER 2024-07-12 08:29 | Emergency (ER) | payer OTHER, SELFPAY ==
[2024-07-12 08:36] VITALS: BP 136/90; PULSE 74; RESP 16; TEMP 36.6; O2SAT 97; BMI 28.8
--- NOTE | 2024-07-12 08:39 | DI.RAD.S_ITS ---
PROCEDURE: XR HAND LT MIN 3V INDICATIONS: r/o fx TECHNIQUE: 3 views of the hand(s) acquired. COMPARISON: None. FINDINGS: Bones: Suggestion of dislocation of the small finger metacarpal at the carpometacarpal joint. No fracture seen. No suspicious bony lesions. Soft tissues: No suspicious soft tissue calcifications. IMPRESSION: Suggestion of dislocation of the small finger metacarpal at the carpometacarpal joint. Dictated by: Nahun Baptiste M.D. on 07/12/2024 at 9:10 Approved by: Nahun Baptiste M.D. on 07/12/2024 at 9:12
--- NOTE | 2024-07-12 08:39 | DI.RAD.S_ITS ---
PROCEDURE: XR WRIST LT MIN 3V INDICATIONS: r/o fx TECHNIQUE: 4 views of the wrist were acquired. COMPARISON: [facility], CR, XR HAND LT MIN 3V, 07/12/2024, 8:40. FINDINGS: Bones: No acute fracture or dislocation. Corticated ossific density adjacent to the ulnar styloid is suggestive of remote injury. Ulnar positive variance, likely posttraumatic. Marked 1st CMC joint space narrowing and juxta-articular osteophytosis with tiny adjacent ossific density which may reflect a loose body versus fractured osteophyte. Mild narrowing of the radiocarpal joint. No suspicious bony lesions. Soft tissues: No suspicious soft tissue calcifications. IMPRESSION: 1. No acute bony abnormality. If clinical symptoms persist, consider repeat radiograph in 10-14 days versus cross-sectional imaging. 2. Remote ulnar styloid fracture with probable posttraumatic ulnar positive variance. 3. Marked 1st CMC and mild radiocarpal joint osteoarthritis. Dictated by: Anna Gautam M.D. on 07/12/2024 at 9:12 Approved by: Anna Gautam M.D. on 07/12/2024 at 9:14
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
[2024-07-12] MEDS: OXYCODONE/ACETAMINOPHEN 5/325 TABLET 1 TAB PO (09:29)
--- NOTE | 2024-07-12 10:17 | DI.RAD.S_ITS ---
PROCEDURE: XR FINGER LT MIN 2V INDICATIONS: possible dislocation / s/p reduction of little finger TECHNIQUE: AP hand, 2 views of the small finger(s) acquired. COMPARISON: [facility], , XR HAND LT MIN 3V, 07/12/2024, 8:40. FINDINGS: Bones: Status post reduction of small finger carpometacarpal joint dislocation. No fracture identified. No suspicious bony lesions. Soft tissues: No suspicious soft tissue calcifications. IMPRESSION: Satisfactory reduction of previous base of small finger dislocation. Dictated by: Nahun Baptiste M.D. on 07/12/2024 at 11:40 Approved by: Nahun Baptiste M.D. on 07/12/2024 at 11:41
[2024-07-12 10:50] VITALS: PULSE 70; RESP 18; O2SAT 97
[2024-07-12 11:44] VITALS: PULSE 72; RESP 18; O2SAT 97
[2024-07-12 12:05] VITALS: BP 150/97; PULSE 67; RESP 16; O2SAT 99
== END 2024-07-12 12:07 | disposition home or self-care (01) ==
PROVIDERS: Emergency Provider Student in an Organized Health Care Education/Training Program; PCP Family Medicine
DX: S52.615A Nondisplaced fracture of left ulna styloid process, initial encounter for closed fracture (principal); W01.0XXA Fall on same level from slipping, tripping and stumbling without subsequent striking against object, initial encounter
CPT/HCPCS: 26670; 29125; 73110; 73130; 73140; 99283

== ENCOUNTER → 2025-06-16 15:20 | Outpatient (CLI) | payer MEDICARE, OTHER, SELFPAY ==
[2025-06-16 16:07] LABS: Influenza A - CEPHEID Flu A NEGATIVE (NEGATIVE); Influenza B - CEPHEID Flu B NEGATIVE (NEGATIVE)
[2025-06-16 16:15] LABS: COVID-19 CEPHEID 4-PLEX PCR Negative (Negative)
== END ==
LOC: LAB 15:20
PROVIDERS: PCP Family Medicine; Visit Provider Registered Nurse
DX: R05.1 Acute cough (principal)
CPT/HCPCS: 87637